=== PATIENT | female | born 1970 | race Caucasian/White ===

== ENCOUNTER → 2016-09-29 | Outpatient (CLI) | payer BC ==
[~2016-09-29] MED LIST: ACET65TA OR; LISI10TA4 OR; No Historical Meds; chlorthalidone OR
[2016-09-29 10:06] LABS: BASO # 0.1 K/mm3 (0.0-0.2); EOS # 0.1 K/mm3 (0.0-0.50); EOS % 1.9 % (0.0-3.0); LARGE UNSTAINED CELL # 0.1 K/mm3 (0.0-0.4); LARGE UNSTAINED CELL % 1.1 % (0.0-4.0); LYMPH # 1.8 K/mm3 (1.5-4.5); LYMPH % 27.1 % (24.0-44.0); MEAN CORPUSCULAR HGB CONC 34.2 g/dl (32.0-36.5); MEAN CORPUSCULAR VOLUME 87.6 fl (80.0-96.0); MONO # 0.3 K/mm3 (0.0-0.8); MONO % 4.3 % (0.0-5.0); NEUTROPHILS # 4.2 K/mm3 (1.8-7.7); NEUTROPHILS % 64.6 % (36.0-66.0); PLATELET COUNT, AUTOMATED 221 k/mm3 (150-450); RED CELL DISTRIBUTION WIDTH 12.7 % (11.5-14.5); WHITE BLOOD COUNT 6.5 K/mm3 (4.0-10.0)
[2016-09-29 10:44] LABS: ALBUMIN 3.7 GM/DL (3.2-5.2); ALBUMIN/GLOBULIN RATIO 1.28 (1.00-1.93); ALKALINE PHOSPHATASE 73 U/L (45-117); ALT/SGPT 19 U/L (12-78); ANION GAP 8 MEQ/L (8-16); AST/SGOT 11 U/L (15-37); BILIRUBIN,TOTAL 0.4 MG/DL (0.2-1.0); BLOOD UREA NITROGEN 17 MG/DL (7-18); CALCIUM LEVEL 8.6 MG/DL (8.5-10.1); CARBON DIOXIDE LEVEL 29 MEQ/L (21-32); CHLORIDE LEVEL 105 MEQ/L (98-107); CHOLESTEROL LEVEL 222 MG/DL (<200); CREATININE FOR GFR 0.81 MG/DL (0.55-1.02); FREE T4 0.99 NG/DL (0.76-1.46); GLOMERULAR FILTRATION RATE > 60.0 (>58); GLUCOSE, FASTING 90 MG/DL (70-105); POTASSIUM SERUM 3.9 MEQ/L (3.5-5.1); SODIUM LEVEL 142 MEQ/L (136-145); TOTAL PROTEIN 6.6 GM/DL (6.4-8.2); TRIGLYCERIDES LEVEL 128 MG/DL (<150)
== END ==
LOC: M LAB 09:44
PROVIDERS: ATTEND Nurse Practitioner Family
DX: I10 Essential (primary) hypertension (principal); R63.5 Abnormal weight gain; E55.9 Vitamin D deficiency, unspecified

== ENCOUNTER → 2017-01-31 | Outpatient (CLI) | payer BC ==
[2017-01-31 18:02] LABS: ANION GAP 8 MEQ/L (8-16); BLOOD UREA NITROGEN 20 MG/DL (7-18); CALCIUM LEVEL 9.3 MG/DL (8.5-10.1); CARBON DIOXIDE LEVEL 34 MEQ/L (21-32); CHLORIDE LEVEL 100 MEQ/L (98-107); CREATININE FOR GFR 0.92 MG/DL (0.55-1.02); GLOMERULAR FILTRATION RATE > 60.0 (>58); GLUCOSE, FASTING 88 MG/DL (70-105); POTASSIUM SERUM 3.1 MEQ/L (3.5-5.1); SODIUM LEVEL 142 MEQ/L (136-145)
== END ==
LOC: M LAB 16:35
PROVIDERS: ATTEND Nurse Practitioner Family
DX: J30.1 Allergic rhinitis due to pollen (principal)

== ENCOUNTER → 2017-02-13 | Outpatient (CLI) | payer BC ==
[2017-02-13 15:20] LABS: ANION GAP 7 MEQ/L (8-16); BLOOD UREA NITROGEN 19 MG/DL (7-18); CALCIUM LEVEL 9.2 MG/DL (8.5-10.1); CARBON DIOXIDE LEVEL 29 MEQ/L (21-32); CHLORIDE LEVEL 104 MEQ/L (98-107); CREATININE FOR GFR 0.94 MG/DL (0.55-1.02); GLOMERULAR FILTRATION RATE > 60.0 (>58); GLUCOSE, FASTING 86 MG/DL (70-105); MAGNESIUM LEVEL 2.1 MG/DL (1.8-2.4); POTASSIUM SERUM 3.9 MEQ/L (3.5-5.1); SODIUM LEVEL 140 MEQ/L (136-145)
== END ==
LOC: M LAB 11:23
PROVIDERS: ATTEND Nurse Practitioner Family
DX: J30.1 Allergic rhinitis due to pollen (principal)

== ENCOUNTER → 2017-08-08 | Outpatient (CLI) | payer BC | LOC: M RAD 15:01 | DX: Z12.31 Encounter for screening mammogram for malignant neoplasm of breast (principal) | CPT/HCPCS: 77067 ==

== ENCOUNTER → 2017-11-14 | Outpatient (REF) | payer BC ==
[2017-11-15 11:21] LABS: BASO # 0.1 10^3/uL (0.0-0.2); BASO % 0.7 % (0.0-1.0); EOS # 0.1 10^3/uL (0.0-0.50); EOS % 0.7 % (0.0-3.0); HEMATOCRIT 41.8 % (36.0-47.0); HEMOGLOBIN 14.4 g/dl (12.0-15.5); IMMATURE GRANULOCYTE % 0.8 % (0-3.0); LYMPH # 2.4 10^3/uL (1.5-4.5); LYMPH % 25.5 % (24.0-44.0); MEAN CORPUSCULAR HEMOGLOBIN 29.5 pg (27.0-33.0); MEAN CORPUSCULAR HGB CONC 34.4 g/dl (32.0-36.5); MEAN CORPUSCULAR VOLUME 85.7 fl (80.0-96.0); MONO # 0.5 10^3/uL (0.0-0.8); MONO % 5.2 % (0.0-5.0); NEUTROPHILS # 6.3 10^3/uL (1.8-7.7); NEUTROPHILS % 67.1 % (36.0-66.0); PLATELET COUNT, AUTOMATED 294 10^3/uL (150-450); RED BLOOD COUNT 4.88 10^6/uL (4.00-5.40); RED CELL DISTRIBUTION WIDTH 13.1 % (11.5-14.5); WHITE BLOOD COUNT 9.4 10^3/uL (4.0-10.0)
[2017-11-15 11:45] LABS: ALBUMIN 3.9 GM/DL (3.2-5.2); ALBUMIN/GLOBULIN RATIO 1.15 (1.00-1.93); ALKALINE PHOSPHATASE 79 U/L (45-117); ALT/SGPT 22 U/L (12-78); ANION GAP 7 MEQ/L (8-16); AST/SGOT 12 U/L (7-37); BILIRUBIN,TOTAL 0.5 MG/DL (0.2-1.0); BLOOD UREA NITROGEN 25 MG/DL (7-18); CALCIUM LEVEL 8.9 MG/DL (8.5-10.1); CARBON DIOXIDE LEVEL 30 MEQ/L (21-32); CHLORIDE LEVEL 105 MEQ/L (98-107); CREATININE FOR GFR 0.99 MG/DL (0.55-1.30); FREE T4 1.03 NG/DL (0.76-1.46); GLOMERULAR FILTRATION RATE > 60.0 (>58); GLUCOSE, FASTING 93 MG/DL (70-100); POTASSIUM SERUM 3.3 MEQ/L (3.5-5.1); SODIUM LEVEL 142 MEQ/L (136-145); TOTAL PROTEIN 7.3 GM/DL (6.4-8.2)
[2017-11-15 14:30] LABS: PROLACTIN 10.2 NG/ML
== END ==
LOC: M SFHCCLAY 15:48
DX: I10 Essential (primary) hypertension (principal); R63.5 Abnormal weight gain; N64.52 Nipple discharge
CPT/HCPCS: 84146

== ENCOUNTER → 2017-11-20 | Outpatient (CLI) | payer BC | LOC: M RAD 11:32 | DX: N64.52 Nipple discharge (principal) ==

== ENCOUNTER → 2017-12-13 | Outpatient (REF) | payer BC ==
[2017-12-14 11:34] LABS: BASO # 0.1 10^3/uL (0.0-0.2); BASO % 0.7 % (0.0-1.0); EOS # 0.1 10^3/uL (0.0-0.50); EOS % 1.3 % (0.0-3.0); HEMOGLOBIN 14.6 g/dl (12.0-15.5); IMMATURE GRANULOCYTE % 0.2 % (0-3.0); LYMPH # 2.5 10^3/uL (1.5-4.5); LYMPH % 29.6 % (24.0-44.0); MEAN CORPUSCULAR HEMOGLOBIN 29.4 pg (27.0-33.0); MEAN CORPUSCULAR VOLUME 86.5 fl (80.0-96.0); MONO # 0.4 10^3/uL (0.0-0.8); MONO % 5.2 % (0.0-5.0); NEUTROPHILS # 5.3 10^3/uL (1.8-7.7); PLATELET COUNT, AUTOMATED 279 10^3/uL (150-450); RED BLOOD COUNT 4.97 10^6/uL (4.00-5.40); RED CELL DISTRIBUTION WIDTH 13.2 % (11.5-14.5); WHITE BLOOD COUNT 8.4 10^3/uL (4.0-10.0)
[2017-12-14 12:06] LABS: ANION GAP 9 MEQ/L (8-16); BLOOD UREA NITROGEN 18 MG/DL (7-18); CALCIUM LEVEL 8.8 MG/DL (8.5-10.1); CARBON DIOXIDE LEVEL 29 MEQ/L (21-32); CHLORIDE LEVEL 104 MEQ/L (98-107); CREATININE FOR GFR 1.15 MG/DL (0.55-1.30); GLOMERULAR FILTRATION RATE 54.3 (>58); GLUCOSE, FASTING 111 MG/DL (70-100); POTASSIUM SERUM 3.2 MEQ/L (3.5-5.1); SODIUM LEVEL 142 MEQ/L (136-145)
== END ==
LOC: M SFHCCLAY 14:19
DX: N64.52 Nipple discharge (principal)
CPT/HCPCS: 80048

== ENCOUNTER → 2018-09-02 | Outpatient (CLI) | payer BC ==
--- NOTE | 2018-09-02 18:30 | REP ---
Clinical: Bronchitis . Comparison: 03/27/2015 . Technique: PA and lateral. Findings: The mediastinum and cardiac silhouette are normal. The lung sheets are clear and without acute consolidation, effusion, or pneumothorax. The skeletal structures are intact and normal. Impression: 1. No acute cardiopulmonary process.
== END ==
LOC: M CLY 11:11
PROVIDERS: ATTEND Nurse Practitioner Family
DX: Z87.09 Personal history of other diseases of the respiratory system (principal)

== ENCOUNTER → 2018-09-02 | Outpatient (REF) | payer BC | LOC: M SFHCCLAY 17:12 | PROVIDERS: ATTEND Nurse Practitioner Family | DX: J40 Bronchitis, not specified as acute or chronic (principal) ==

== ENCOUNTER → 2018-09-02 | Outpatient (REF) | payer BC ==
[2018-09-02 16:58] LABS: BASO # 0.1 10^3/uL (0.0-0.2); BASO % 0.5 % (0.0-1.0); EOS % 0.4 % (0.0-3.0); HEMATOCRIT 41.7 % (36.0-47.0); HEMOGLOBIN 14.2 g/dl (12.0-15.5); LYMPH # 1.5 10^3/uL (1.5-4.5); LYMPH % 13.7 % (24.0-44.0); MEAN CORPUSCULAR HEMOGLOBIN 29.6 pg (27.0-33.0); MEAN CORPUSCULAR HGB CONC 34.1 g/dl (32.0-36.5); MEAN CORPUSCULAR VOLUME 87.1 fl (80.0-96.0); MONO # 0.6 10^3/uL (0.0-0.8); MONO % 4.9 % (0.0-5.0); NEUTROPHILS # 8.9 10^3/uL (1.8-7.7); NEUTROPHILS % 80.1 % (36.0-66.0); PLATELET COUNT, AUTOMATED 255 10^3/uL (150-450); RED BLOOD COUNT 4.79 10^6/uL (4.00-5.40); WHITE BLOOD COUNT 11.1 10^3/uL (4.0-10.0)
[2018-09-02 17:08] LABS: BLOOD UREA NITROGEN 20 MG/DL (7-18); CALCIUM LEVEL 8.6 MG/DL (8.5-10.1); CARBON DIOXIDE LEVEL 29 MEQ/L (21-32); CHLORIDE LEVEL 100 MEQ/L (98-107); CREATININE FOR GFR 0.92 MG/DL (0.55-1.30); GLOMERULAR FILTRATION RATE > 60.0 (>58); GLUCOSE, FASTING 84 MG/DL (70-100); POTASSIUM SERUM 3.1 MEQ/L (3.5-5.1); SODIUM LEVEL 140 MEQ/L (136-145)
== END ==
LOC: M SFHCCLAY 10:27
PROVIDERS: ATTEND Nurse Practitioner Family
DX: J40 Bronchitis, not specified as acute or chronic (principal)

== ENCOUNTER → 2018-10-14 | Outpatient (REF) | payer BC | LOC: M SFHCCAPE 15:24 | PROVIDERS: ATTEND Physician Assistant | DX: R30.0 Dysuria (principal) ==

== ENCOUNTER → 2018-11-05 | Outpatient (REF) | payer BC ==
[2018-11-05 11:41] LABS: ALBUMIN 3.7 GM/DL (3.2-5.2); BILIRUBIN,TOTAL 0.6 MG/DL (0.2-1.0); CALCIUM LEVEL 8.9 MG/DL (8.5-10.1); CREATININE FOR GFR 1.06 MG/DL (0.55-1.30); GLOMERULAR FILTRATION RATE 59.4 (>58); POTASSIUM SERUM 3.6 MEQ/L (3.5-5.1); TOTAL PROTEIN 6.9 GM/DL (6.4-8.2)
[2018-11-05 11:42] LABS: BASO # 0.1 10^3/uL (0.0-0.2); BASO % 0.6 % (0.0-1.0); EOS # 0.1 10^3/uL (0.0-0.50); EOS % 1.3 % (0.0-3.0); HEMATOCRIT 43.2 % (36.0-47.0); HEMOGLOBIN 14.5 g/dl (12.0-15.5); LYMPH % 24.5 % (24.0-44.0); MEAN CORPUSCULAR HEMOGLOBIN 29.4 pg (27.0-33.0); MEAN CORPUSCULAR HGB CONC 33.6 g/dl (32.0-36.5); MEAN CORPUSCULAR VOLUME 87.6 fl (80.0-96.0); MONO # 0.5 10^3/uL (0.0-0.8); MONO % 6.2 % (0.0-5.0); NEUTROPHILS # 5.5 10^3/uL (1.8-7.7); PLATELET COUNT, AUTOMATED 223 10^3/uL (150-450); RED BLOOD COUNT 4.93 10^6/uL (4.00-5.40); WHITE BLOOD COUNT 8.2 10^3/uL (4.0-10.0)
== END ==
LOC: M SFHCCLAY 08:30
PROVIDERS: ATTEND Nurse Practitioner Family
DX: R10.11 Right upper quadrant pain (principal)

== ENCOUNTER → 2018-12-03 | Outpatient (CLI) | payer BC ==
[~2018-12-03] MED LIST changes: +GASTROGRAFIN SOLUTION 30ML (Q9963) As Ordered ONE; +ISOVUE-370 76% 100ML VIAL (Q9967) As Ordered ONE
--- NOTE | 2018-12-04 05:25 | REP ---
Clinical: Right upper quadrant pain. Technique: Axial contrast enhanced images of the abdomen using oral (per protocol) and 100 ml Isovue 370 intravenous contrast material with coronal and sagittal re-formations. Comparison: 11/14/2013. Findings: Lung bases are clear. Visualized heart and pericardium normal. Liver, spleen, pancreas, gallbladder, bilateral adrenal glands and kidneys are normal. Visualized small and large bowel is unremarkable and without obstruction or acute inflammatory process. Normal terminal ileum and appendix are identified in the right lower abdomen. 1 cm fat containing periumbilical hernia identified and fat containing infraumbilical ventral hernia is partially visualized. No ascites. No adenopathy. No free air. Abdominal aorta and vasculature appears normal. Musculoskeletal structures are intact. Impression: 1. Small fat containing periumbilical hernia and incompletely evaluated infraumbilical ventral hernia. 2. No acute abdominopelvic pathology appreciated. Electronically Signed by Lucas Muñoz MD 12/04/2018 05:16 A
== END ==
LOC: M RAD 08:08
PROVIDERS: ATTEND Nurse Practitioner Family
DX: K44.9 Diaphragmatic hernia without obstruction or gangrene (principal)
CPT/HCPCS: 74160; Q9963; Q9967

== ENCOUNTER → 2018-12-31 | Outpatient (CLI) | payer BC ==
[~2018-12-31] MED LIST changes: +ALBU83IN INH; +ATEN25TA PO; +CHLO125TA PO; +CHLO25TA GT; +D3 H2000 PO; +DEXI60CA2 PO; +E-Z-GAS II EFFERVESCENT PACKET (SODIUM BICARB./CITRIC ACID/SIMETHICONE) As Ordered ONE; +E-Z-HD 98% w/w 340GM SUSP BTL As Ordered ONE; +E-Z-PAQUE 96% w/w SUSP 176GM BTL As Ordered ONE; +FLUT11IN INH; -GASTROGRAFIN SOLUTION 30ML (Q9963) As Ordered ONE; -ISOVUE-370 76% 100ML VIAL (Q9967) As Ordered ONE; +MONT10TA2 PO; +MULTCAP PO; +PANT20TA2 PO; +POTA10TA17 PO; +PROAAER10 INH
--- NOTE | 2018-12-31 16:43 | REP ---
Upper GI Air Contrast with SBFT The procedure was performed by Brissa Fernandez [facility], under the the direct supervision of Dr. Muñoz. The images were reviewed with Dr. uMñoz. The roasterman film shows no organomegaly or pathological masses. The intestinal gas pattern appears normal. Liquid barium and gas producing crystals were given in the erect position as well as liquid barium in the prone position in order to perform a double contrast upper GI examination. The oral and pharyngeal stages of deglutition were unremarkable. Esophageal transport is efficient and there is no esophagitis, stricture, or mucosal ring noted. There is no hiatal hernia. Gastroesophageal reflux was visualized to the level of the thoracic inlet. The stomach oconnor are normally outlined. The rugal folds are smooth and regular. There is no gastritis, neoplasm, or ulcer disease noted. The duodenal oconnor are normally outlined. The mucosal folds are smooth and regular. There is no duodenitis, peptic ulcer disease, or neoplasm noted. The visualized portion of the proximal small bowel appears normal in course and caliber. The barium column was followed through the small bowel to the level of the terminal ileum. Small bowel transit time was approximately 40 minutes. During fluoroscopy gentle palpation shows all loops are freely mobile and pliable. There are no fixed or angulated loops. The small bowel mucosal pattern is normal in course and caliber. There is no transition to set suggest a partial small-bowel obstruction. Spot filming of the terminal ileum shows it to be unremarkable. Impression: 1. Gastroesophageal reflux to the level of the thoracic inlet. 2. Unremarkable small-bowel follow-through 1.6 minutes of fluoroscopy time was utilized for this procedure. Some fluoroscopic images are performed with last image hold technology. These images require no additional radiation. Reviewed by RADHA Palacios 12/31/2018 03:51 P Electronically Signed by Lucas Muñoz MD 12/31/2018 04:35 P
== END ==
LOC: M RAD 07:38
PROVIDERS: ATTEND Surgery
DX: R19.7 Diarrhea, unspecified (principal); R10.84 Generalized abdominal pain; K21.9 Gastro-esophageal reflux disease without esophagitis

== ENCOUNTER → 2019-01-16 | Outpatient (REF) | payer BC ==
[~2019-01-16] MED LIST changes: -ALBU83IN INH; -ATEN25TA PO; -CHLO125TA PO; -CHLO25TA GT; -D3 H2000 PO; -DEXI60CA2 PO; -E-Z-GAS II EFFERVESCENT PACKET (SODIUM BICARB./CITRIC ACID/SIMETHICONE) As Ordered ONE; -E-Z-HD 98% w/w 340GM SUSP BTL As Ordered ONE; -E-Z-PAQUE 96% w/w SUSP 176GM BTL As Ordered ONE; -FLUT11IN INH; -MONT10TA2 PO; -MULTCAP PO; -PANT20TA2 PO; -POTA10TA17 PO; -PROAAER10 INH
[2019-01-16 13:49] LABS: BASO # 0.1 10^3/uL (0.0-0.2); BASO % 1.2 % (0.0-1.0); EOS # 0.1 10^3/uL (0.0-0.50); EOS % 1.7 % (0.0-3.0); HEMATOCRIT 40.4 % (36.0-47.0); LYMPH # 2.3 10^3/uL (1.5-4.5); LYMPH % 34.6 % (24.0-44.0); MEAN CORPUSCULAR HEMOGLOBIN 30.2 pg (27.0-33.0); MEAN CORPUSCULAR HGB CONC 34.7 g/dl (32.0-36.5); MEAN CORPUSCULAR VOLUME 87.1 fl (80.0-96.0); MONO # 0.4 10^3/uL (0.0-0.8); MONO % 6.3 % (0.0-5.0); NEUTROPHILS # 3.7 10^3/uL (1.8-7.7); NEUTROPHILS % 55.9 % (36.0-66.0); PLATELET COUNT, AUTOMATED 293 10^3/uL (150-450); RED BLOOD COUNT 4.64 10^6/uL (4.00-5.40); WHITE BLOOD COUNT 6.6 10^3/uL (4.0-10.0)
[2019-01-21 00:06] LABS: D001-IgE D pteronyssinus <0.10 kU/L (Class 0); E001-IgE Cat Epith/Dander < 0.10 kU/L (Class 0); E005-IgE Dog Dander < 0.10 kU/L (Class 0); G002-IgE Bermuda Grass < 0.10 kU/L (Class 0); G008-IgE Kentucky Bluegrass < 0.10 kU/L (Class 0); M001-IgE Penicillium chrysogen < 0.10 kU/L (Class 0); M002 IgE Cladosporium herbaru < 0.10 kU/L (Class 0); M003 IgE Aspergillus fumigatu < 0.10 kU/L (Class 0); M006-IgE Alternaria alternata < 0.10 kU/L (Class 0); T001-IgE Maple/Box Elder < 0.10 kU/L (Class 0); T003-IgE Common Silver Birch < 0.10 kU/L (Class 0); T006-IgE Cedar, Mountain < 0.10 kU/L (Class 0); T007-IgE Oak, White < 0.10 kU/L (Class 0); T008-IgE Elm, American < 0.10 kU/L (Class 0); T015-IgE Ash, White < 0.10 kU/L (Class 0); T041-IgE Hickory, White < 0.10 kU/L (Class 0); T070-IgE White Mulberry < 0.10 kU/L (Class 0); W001-IgE Ragweed, Short < 0.10 kU/L (Class 0); W009-IgE Plantain, English < 0.10 kU/L (Class 0); W014-IgE Pigweed, Rough < 0.10 kU/L (Class 0); W018-IgE Sheep Sorrel < 0.10 kU/L (Class 0)
== END ==
LOC: M LAB REF 12:48
PROVIDERS: ATTEND Internal Medicine Pulmonary Disease
DX: J45.20 Mild intermittent asthma, uncomplicated (principal)

== ENCOUNTER → 2019-02-26 | Outpatient (CLI) | payer BC ==
--- NOTE | 2019-02-26 12:29 | REP ---
BILATERAL LOWER EXTREMITY DUPLEX VENOUS ULTRASOUND: Reflux exam. HISTORY: Leg swelling. Spider veins. Rule out reflux. FINDINGS: The deep veins are anechoic and fully compressible from the groin to the popliteal fossa in both lower extremities on two-dimensional scanning. Color flow and spectral Doppler interrogation are unremarkable. There is no evidence of deep vein thrombosis in either lower extremity. REFLUX EXAM: In the right lower extremity, there is a 2.9 mm collateral coming off the mid to distal greater saphenous vein. There is reflux, 3.1 seconds in duration at the midthigh in the greater saphenous vein where it measures 4.5 mm in diameter. No reflux is seen distal to this. The greater saphenous vein measures 4.9 mm in AP dimension at the proximal saphenofemoral junction and 4.1 mm in AP dimension at the knee. An anterior accessory greater saphenous vein is present measuring 5.2 mm. On the left there is minimal deep system reflux proximally. No superficial system reflux is seen. Somewhat stagnant flow was observed with standing and bilateral lower extremities. The common femoral vein demonstrates 1.3 seconds of mild reflux. An anterior accessory greater saphenous vein is present measuring and 6.5 mm without reflux. The greater saphenous vein measures 5.3 mm at the proximal saphenofemoral junction, 3.8 mm at midthigh, and 2.5 mm at the knee. There is minimal proximal femoral vein reflux, 0.9 seconds. The lesser saphenous vein measures 2.5 mm. IMPRESSION: Mild bilateral lower extremity venous reflux as above. Electronically Signed by Adam Fischer MD 02/26/2019 04:39 P
== END ==
LOC: M RAD 06:43
PROVIDERS: ATTEND Nurse Practitioner Family
DX: I87.2 Venous insufficiency (chronic) (peripheral) (principal)

== ENCOUNTER → 2019-02-27 | Outpatient (REF) | payer BC ==
[2019-02-27 11:53] LABS: BLOOD UREA NITROGEN 18 MG/DL (7-18); CALCIUM LEVEL 9.1 MG/DL (8.5-10.1); CARBON DIOXIDE LEVEL 32 MEQ/L (21-32); CHLORIDE LEVEL 99 MEQ/L (98-107); CREATININE FOR GFR 0.93 MG/DL (0.55-1.30); GLOMERULAR FILTRATION RATE > 60.0 (>58); GLUCOSE, FASTING 106 MG/DL (70-100); MAGNESIUM LEVEL 1.9 MG/DL (1.8-2.4); SODIUM LEVEL 138 MEQ/L (136-145)
== END ==
LOC: M SFHCCLAY 07:19
PROVIDERS: ATTEND Nurse Practitioner Family
DX: I10 Essential (primary) hypertension (principal)

== ENCOUNTER → 2019-03-11 | Outpatient (CLI) | payer BC ==
--- NOTE | 2019-03-11 10:51 | REP ---
RIGHT UPPER QUADRANT ULTRASOUND: Real-time sonographic evaluation of right upper quadrant performed. Gallbladder demonstrates no evidence of intraluminal sludge or calculi, wall thickening, or pericholecystic fluid. There is no intrahepatic or extrahepatic biliary dilatation, common bile duct measuring 4 mm in diameter. Liver demonstrates somewhat increased echotexture suggesting some degree of diffuse fibrofatty infiltration. In addition, there appear to be two hypoechoic nodules in the left lobe measuring 1.8 x 1.3 x 1.3 cm and 3.7 x 3.5 x 4.1 cm. Pancreas is grossly unremarkable, not optimally seen due to overlying bowel gas. Right kidney demonstrates no hydronephrosis with normal size 10.8 cm in length. IMPRESSION: There are findings suggesting diffuse fibrofatty infiltration of the liver. In addition, there are two hypoechoic nodules in the left lobe of the liver measuring 1.8 cm and 4.1 cm in maximum diameter. Recommend dedicated dynamic MRI liver with and without contrast to further evaluate. Electronically Signed by Winston Granados MD 03/12/2019 10:52 A
== END ==
LOC: M RAD 08:31
PROVIDERS: ATTEND Internal Medicine Gastroenterology
DX: K21.9 Gastro-esophageal reflux disease without esophagitis (principal)

== ENCOUNTER → 2019-03-13 | Outpatient (REF) | payer BC ==
[2019-03-13 13:34] LABS: BLOOD UREA NITROGEN 15 MG/DL (7-18); CALCIUM LEVEL 9.4 MG/DL (8.5-10.1); CARBON DIOXIDE LEVEL 29 MEQ/L (21-32); CHLORIDE LEVEL 103 MEQ/L (98-107); CREATININE FOR GFR 0.81 MG/DL (0.55-1.30); GLOMERULAR FILTRATION RATE > 60.0 (>58); GLUCOSE, FASTING 99 MG/DL (70-100); POTASSIUM SERUM 3.4 MEQ/L (3.5-5.1); SODIUM LEVEL 142 MEQ/L (136-145)
[2019-03-13 13:45] LABS: TOTAL 25(OH) VITAMIN D 25.7 NG/ML (30.0-100.0)
== END ==
LOC: M SFHCCLAY 07:17
PROVIDERS: ATTEND Nurse Practitioner Family
DX: E87.6 Hypokalemia (principal); E55.9 Vitamin D deficiency, unspecified

== ENCOUNTER → 2019-03-18 | Outpatient (CLI) | payer BC ==
[~2019-03-18] MED LIST changes: +ALBU83IN INH; +ATEN25TA PO; +CHLO125TA PO; +CHLO25TA GT; +D3 H2000 PO; +DEXI60CA2 PO; +FLUT11IN INH; +MONT10TA2 PO; +MULTCAP PO; +PANT20TA2 PO; +POTA10TA17 PO; +PROAAER10 INH
--- NOTE | 2019-03-18 09:54 | REP ---
NUCLEAR GASTRIC EMPTYING SCAN: Following the oral administration of 1.04 mCi of technetium-99m sulfur colloid in two scrambled eggs and 6 ounces of water multiple images of the upper abdomen were performed in the anterior and posterior projections for 90 minutes. The T1/2 is calculated to be 83 minutes. This is normal. IMPRESSION: Normal gastric emptying. Electronically Signed by Winston Granados MD 03/19/2019 10:04 A
== END ==
LOC: M RAD 07:32
PROVIDERS: ATTEND Internal Medicine Gastroenterology
DX: K31.84 Gastroparesis (principal)

== ENCOUNTER → 2019-03-25 | Outpatient (CLI) | payer BC ==
[~2019-03-25] MED LIST changes: -CHLO25TA GT; -D3 H2000 PO; -MULTCAP PO; -POTA10TA17 PO
--- NOTE | 2019-03-25 10:54 | REP ---
HIDA SCAN WITH GALLBLADDER EJECTION FRACTION: Following the intravenous administration of 6.6 millicuries technetium 99m mebrofenin, multiple images of the right upper quadrant are performed every 5 minute for a period of 1 hour. The gallbladder is visualized at 10 minutes post injection. There is no definite biliary to bowel transit by 1 hour, which may indicate a hypertonic sphincter of Oddi. At the 1-hour otilio, 8 ounces of Ensure Enlive is ingested and further imaging performed for 1 hour. Gallbladder activity is measured and gallbladder ejection fraction is calculated to be 74%, which is normal. IMPRESSION: Delayed biliary to bowel transit may indicate a hypertonic sphincter of Oddi. Normal gallbladder ejection fraction. Electronically Signed by Winston Granados MD 03/25/2019 03:56 P
== END ==
LOC: M RAD 07:48
PROVIDERS: ATTEND Internal Medicine Gastroenterology
DX: K82.8 Other specified diseases of gallbladder (principal)

== ENCOUNTER → 2019-04-01 | Outpatient (CLI) | payer BC ==
[~2019-04-01] MED LIST changes: +PROHANCE 279.3MG/ML 15ML VIAL (A9576) As Ordered ONE; +PROHANCE 279.3MG/ML 5ML VIAL (A9576) As Ordered ONE
--- NOTE | 2019-04-02 10:58 | REP ---
MRI ABDOMEN WITH AND WITHOUT CONTRAST: HISTORY: Liver nodule. COMPARISON: Ultrasound 03/11/2019, CT abdomen 12/03/2018 and 11/14/2013. TECHNIQUE: Multiple sequences obtained in the axial and coronal planes prior to and following the intravenous administration of 18 mL ProHance. Liver is normal in size. On precontrast images there is a subtle hyperintense nodule on T2 in the lateral segment of the left lobe inferiorly. This demonstrates arterial phase enhancement on postcontrast images and measures approximately 1.5 x 1.1 cm. There is a heterogeneously enhancing nodule in the medial segment of the left lobe centrally which is essentially isointense on precontrast T2-weighted images and is mildly hypointense on T1-weighted images. The mass is lobulated and demonstrates washout with essentially isointense appearance on more delayed postcontrast images. It measures approximately 3.8 x 4.1 cm. No other liver mass is seen. Spleen is upper limits of normal in size with a length of 13 cm. No intrinsic splenic abnormality is seen. The adrenals and pancreas are unremarkable. Left kidney appears somewhat atrophic with no mass seen in the visualized portions of the kidneys. I see no adenopathy or free fluid in the visualized abdomen. IMPRESSION: Nonspecific mass in the medial segment of the left lobe of the liver centrally with a maximum diameter of 4.1 cm. There is arterial phase enhancement which is heterogeneous with washout demonstrated on more delayed images, to an isointense appearance with adjacent normal liver parenchyma. Differential diagnosis would include adenoma, particularly if the patient is taking control pills, focal nodular hyperplasia, atypical hemangioma, or malignancy. Compared to the CT of 11/14/2013 the nodule may have been present on that prior exam, but only a subtle questionable subtle nodule is seen at that location at that time. I would recommend ultrasound guided biopsy of this mass. Otherwise if this is felt to be benign 3 month followup MRI is recommended. The other smaller nodule in the lateral segment of the left lobe inferiorly does appear to have been present on the prior exam of 2013 and is most consistent with a benign nodule such as hemangioma. No adenopathy or free fluid. Electronically Signed by Winston Granados MD 04/03/2019 08:58 A
== END ==
LOC: M RAD 14:55
PROVIDERS: ATTEND Internal Medicine Gastroenterology
DX: R93.2 Abnormal findings on diagnostic imaging of liver and biliary tract (principal); K76.89 Other specified diseases of liver
CPT/HCPCS: 74183; A9576

== ENCOUNTER → 2019-04-17 | Outpatient (REF) | payer BC ==
[~2019-04-17] MED LIST changes: +CHLO25TA GT; +D3 H2000 PO; +MULTCAP PO; +POTA10TA17 PO; -PROHANCE 279.3MG/ML 15ML VIAL (A9576) As Ordered ONE; -PROHANCE 279.3MG/ML 5ML VIAL (A9576) As Ordered ONE
[2019-04-17 12:02] LABS: BASO # 0.1 10^3/uL (0.0-0.2); BASO % 0.8 % (0.0-1.0); EOS # 0.1 10^3/uL (0.0-0.5); EOS % 1.1 % (0.0-3.0); HEMATOCRIT 43.9 % (36.0-47.0); LYMPH % 22.6 % (24.0-44.0); MEAN CORPUSCULAR HEMOGLOBIN 29.5 pg (27.0-33.0); MEAN CORPUSCULAR HGB CONC 34.2 g/dl (32.0-36.5); MEAN CORPUSCULAR VOLUME 86.4 fl (80.0-96.0); MONO # 0.4 10^3/uL (0.0-0.8); MONO % 4.9 % (0.0-5.0); NEUTROPHILS # 6.2 10^3/uL (1.5-8.5); NEUTROPHILS % 70.3 % (36.0-66.0); PLATELET COUNT, AUTOMATED 280 10^3/uL (150-450); RED BLOOD COUNT 5.08 10^6/uL (4.00-5.40); WHITE BLOOD COUNT 8.8 10^3/uL (4.0-10.0)
[2019-04-17 12:07] LABS: ALBUMIN 3.6 GM/DL (3.2-5.2); ALT/SGPT 17 U/L (12-78); BILIRUBIN,DIRECT < 0.1 MG/DL (0.0-0.2); BILIRUBIN,TOTAL 0.5 MG/DL (0.2-1.0); GAMMA GLUTAMYLTRANSPEPTIDASE 34 U/L (5-55); TOTAL PROTEIN 7.3 GM/DL (6.4-8.2)
[2019-04-17 12:12] LABS: INR 1.1; PROTHROMBIN TIME 13.9 SECONDS (11.8-14.0)
== END ==
LOC: M LABDRAWC 11:08
PROVIDERS: ATTEND Internal Medicine Gastroenterology
DX: R93.2 Abnormal findings on diagnostic imaging of liver and biliary tract (principal); D37.6 Neoplasm of uncertain behavior of liver, gallbladder and bile ducts

== ENCOUNTER 2019-04-18 12:27 | Day surgery (SDC) | payer BC ==
[~2019-04-18] VITALS: Ht 157.5 cm; Wt 93.2 kg
[~2019-04-18 12:27] MED LIST changes: +NS 1,000 ML IV ONE
[2019-04-18] MEDS ORDERED: PROPOFOL 200 MG/20 ML VIAL As Ordered ONE (12:48)
[2019-04-18] MEDS ORDERED: LIDOCAINE 2% INJ 100 MG/5 ML SDV (FOR ANES.) As Ordered ONE (12:48)
[2019-04-18] MEDS ORDERED: fentaNYL 100 MCG/2 ML INJECTION (J3010) As Ordered ONE (12:49)
[2019-04-18] MEDS ORDERED: ONDANSETRON 4MG/2ML VIAL (J2405) As Ordered ONE (13:26)
--- NOTE | 2019-04-18 13:44 | ROOR ---
Patient Name: Ellen Uribe Procedure Date: 04/18/2019 1:17 PM Date of : 1970 Age: 49 Room: [facility] Gender: Female Note Status: Finalized Procedure: Upper GI endoscopy Indications: Epigastric abdominal pain, Heartburn, Abdominal bloating, Diarrhea, Regurgitation Providers: Petros GIBSON MD Referring MD: Katharina Silverman NP Requesting Provider: Medicines: Monitored Anesthesia Care Complications: No immediate complications. Procedure: Pre-Anesthesia Assessment: - The heart rate, respiratory rate, oxygen saturations, blood pressure, adequacy of pulmonary ventilation, and response to care were monitored throughout the procedure. The Endoscope was introduced through the mouth, and advanced to the second part of duodenum. The upper GI endoscopy was accomplished without difficulty. The patient tolerated the procedure well. Findings: The Z-line was variable and was found 39 cm from the incisors. This was biopsied with a cold forceps for histology. The exam of the esophagus was otherwise normal. A few 3 to 5 mm semi-sessile fundic gland polyps were found in the gastric fundus and in the gastric body. Biopsies were taken with a cold forceps for histology. The exam of the stomach was otherwise normal. The examined duodenum was normal. Biopsies for histology were taken with a cold forceps for evaluation of celiac disease. Impression: - Z-line variable, 39 cm from the incisors. Biopsied. - The esophagus was otherwise normal. - A few fundic gland polyps. Biopsied. - The stomach is otherwise normal. - Normal examined duodenum. Biopsied. Recommendation: - Continue present medications. - Observe patient's clinical course. - Await pathology results. - Return to my office as previously scheduled. Petros Gibson MD Petros GIBSON MD 04/18/2019 1:43:44 PM Electronically signed by Petros GIBSON MD Number of Addenda: 0 Note Initiated On: 04/18/2019 1:17 PM Estimated Blood Loss: Estimated blood loss: none.
[2019-04-18 14:15] VITALS: BP 134/82
== END 2019-04-18 14:15 | disposition home or self-care (01) ==
LOC: M OPP 12:27
PROVIDERS: ATTEND Internal Medicine Gastroenterology
DX: K22.8 Other specified diseases of esophagus (principal); K31.7 Polyp of stomach and duodenum; R10.13 Epigastric pain; R14.0 Abdominal distension (gaseous); R19.7 Diarrhea, unspecified; R11.10 Vomiting, unspecified; I10 Essential (primary) hypertension; Z79.899 Other long term (current) drug therapy; Z91.030 Bee allergy status
CPT/HCPCS: 43239; 88305; J2405; J3010

== ENCOUNTER → 2019-04-22 | Outpatient (CLI) | payer BC ==
[~2019-04-22] MED LIST changes: +ACETAMINOPHEN 325 MG TAB As Ordered ONE; +LIDOCAINE 1% MDV 20ML VIAL As Ordered ONE; -NS 1,000 ML IV ONE
[2019-04-22 12:25] VITALS: BP 150/91
--- NOTE | 2019-04-22 17:12 | REP ---
Ultrasound-guided liver biopsy This procedure was performed by Brissa Fernandez [facility], under the direct supervision of Dr. Granados. The risks and benefits of the procedure were explained to the patient and informed consent was obtained both verbally and written. Directly prior to the start of the procedure, a formal timeout was done in the procedure room. The mass in the left lobe of the liver was localized using ultrasound guidance. The skin was prepped and draped in a sterile fashion. 13 ml of 1% lidocaine was used as a local anesthetic. Using ultrasound guidance a small skin dc was made and a 19/20 gauge coaxial needle biopsy system was inserted and advanced into the liver. 4 core biopsy samples were obtained and sent to the lab. The patient tolerated the procedure well and there were no immediate complications. After the appropriate monitored convalescence the patient was discharged home from the department. Reviewed by RADHA Palacios 04/22/2019 03:28 P Electronically Signed by Winston Granados MD 04/22/2019 05:03 P
== END ==
LOC: M IRPRO 09:17
PROVIDERS: ATTEND Internal Medicine Gastroenterology
DX: D13.4 Benign neoplasm of liver (principal); K76.0 Fatty (change of) liver, not elsewhere classified; Z79.899 Other long term (current) drug therapy; Z91.030 Bee allergy status

== ENCOUNTER → 2019-05-20 | Outpatient (CLI) | payer BC ==
[~2019-05-20] MED LIST changes: -ACETAMINOPHEN 325 MG TAB As Ordered ONE; -LIDOCAINE 1% MDV 20ML VIAL As Ordered ONE; +METHACHOLINE KIT (J7674) INH ONE
--- NOTE | 2019-05-20 13:56 | PFTRPT ---
Site: [facility], [address] [place], [address] ID: [id number] Name: DARIUS BAIN Visit Date: 05/20/2019 Second ID: [id number] Referring Doctor: Dio Christiansen D.O. Reviewing Doctor: Stephen Diane MD Propeller Layout Worker: Destiny BORREGO RRT Age: 49 : 1970 Sex: Female Race: Height: 62.00 Inches Weight: 200.00 Lbs BSA: 1.91 Order IDs: [id number] Requested Test(s): <RESP-PFT.METH CHAL> Diagnosis: R05 of albuterol for postbronchodilator. Review Status: Not Reviewed Pre-Bronch Post-Bronch Pred Actual %Pred Actual %Chng SPIROMETRY FVC (L) 3.35 3.02 90 2.98 -1 FEV1 (L) 2.68 2.47 92 2.41 -2 FEV1/FVC (%) 81 82 101 81 -1 FEF 25% (L/sec) 5.08 3.93 77 4.14 5 FEF 50% (L/sec) 4.00 2.47 61 2.20 -10 FEF 75% (L/sec) 1.50 1.38 92 1.17 -15 FEF 25-75% (L/sec) 2.75 2.36 85 2.15 -8 FEF Max (L/sec) 6.52 5.14 78 4.68 -8 FIVC (L) 3.17 2.87 -9 FIF 50% (L/sec) 3.88 4.02 103 3.08 -23 FIF Max (L/sec) 4.28 3.20 -25 Expiratory Time (sec) 6.45 6.61 2 Back Extrap Vol (L) 0.05 0.08 45 Time To FEFmax (sec) 0.068 0.092 34
--- NOTE | 2019-05-26 11:54 | SLEEPHOME ---
DATE OF PROCEDURE: 05/22/2019 ORDERED BY: Dr. Christiansen Diagnostic home sleep testing was performed due to concern for the obstructive sleep apnea syndrome. For testing, a nocturnal T3 respiratory monitoring device was used. Continuous record was made of pulse, oxygen saturation, airflow, chest and abdominal strain, and body position. 9 hours and 24 minutes of data were reviewed. There 7 hours and 58 minutes marked as time in bed. During the interval marked time in bed, there were 43 respiratory events identified of 10 seconds in duration or greater for a respiratory event index of 5.4. The events were primarily obstructive, 18 mixed and central apneas were also seen. Pulse rate and saturation data were unable to be reported as the probe dislodged early in the study. Testing was performed in both supine and nonsupine positions. IMPRESSION: Abnormal home sleep testing with repetitive respiratory events and a respiratory event index of 5.4 is consistent with the obstructive sleep apnea syndrome. RECOMMENDATIONS: The patient should be encouraged to undergo formal sleep evaluation.
== END ==
LOC: M SLEEP HO 12:43
PROVIDERS: ATTEND Internal Medicine Pulmonary Disease
DX: R05 Cough (principal); R06.83 Snoring; G47.9 Sleep disorder, unspecified
CPT/HCPCS: 94070; G0399; J7674

== ENCOUNTER → 2019-06-17 | Outpatient (CLI) | payer BC ==
[~2019-06-17] MED LIST changes: -METHACHOLINE KIT (J7674) INH ONE
--- NOTE | 2019-06-25 12:10 | SLEEPCENT ---
DATE OF PROCEDURE: 06/17/2019 Nocturnal polysomnography was performed for evaluation of sleep physiology. 7 hours and 22 minutes of data were reviewed. There were 410.5 minutes of sleep identified. Sleep latency was prolonged at 19.5 minutes. REM latency was prolonged at 193 minutes. Sleep architecture showed poor progression. There were three REM cycles noted. Overall sleep efficiency was 93.8%, but there was a reduction in REM time. The patient's electrocardiogram showed a sinus rhythm with an average heart rate of 70 beats per minute. Rate ranged 60 to 100 beats per minute. EEG showed some coarsening but no focal events were identified. There were normal waveforms for awake and sleep. There were 295 respiratory events identified of 10 seconds in duration or greater for an apnea-hypopnea index of 43.1. There were 18 central and mixed apneas. The events were not exclusive to sleep stage nor body posture. Arousals from respiratory events were seen to occur 5.4 times per hour and oxygen desaturations were seen into the low 80s. There was also significant activity in the limb leads, however arousals events from limbs were few. IMPRESSION: Obstructive sleep apnea syndrome (G47.33). Apnea-hypopnea index 43.1. RECOMMENDATIONS The patient should be encouraged to return to the sleep disorder center for pressure therapy. In the interim, alcohol and sedative avoidance should be practiced and caution exercised during the operation of motor vehicles.
== END ==
LOC: M SLEEP 19:50
PROVIDERS: ATTEND Internal Medicine Pulmonary Disease
DX: G47.33 Obstructive sleep apnea (adult) (pediatric) (principal)

== ENCOUNTER → 2019-09-25 | Outpatient (CLI) | payer BC ==
[~2019-09-25] MED LIST changes: -MONT10TA2 PO; +MONT10TA4 PO
--- NOTE | 2019-09-25 11:34 | REP ---
CHEST, TWO VIEWS: COMPARISON: 10/17/2018. There is no evidence of acute infiltrate. No pleural effusion is seen. The heart is normal in size. The mediastinal silhouette is unremarkable. The visualized osseous structures are intact. There are mild degenerative changes of the spine. IMPRESSION: No acute pulmonary disease. Electronically Signed by Winston Granados MD 09/25/2019 04:52 P
== END ==
LOC: M CLY 09:19
PROVIDERS: ATTEND Nurse Practitioner Family
DX: K76.9 Liver disease, unspecified (principal)

== ENCOUNTER → 2019-10-03 | Outpatient (REF) | payer BC | LOC: M LABDRAWC 11:35 | PROVIDERS: ATTEND Internal Medicine Gastroenterology | DX: K31.89 Other diseases of stomach and duodenum (principal); R19.7 Diarrhea, unspecified; K25.9 Gastric ulcer, unspecified as acute or chronic, without hemorrhage or perforation ==

== ENCOUNTER → 2019-10-13 | Outpatient (CLI) | payer BC ==
[~2019-10-13] MED LIST changes: +PROHANCE 279.3MG/ML 15ML VIAL (A9576) As Ordered ONE; +PROHANCE 279.3MG/ML 5ML VIAL (A9576) As Ordered ONE
--- NOTE | 2019-10-13 11:51 | REP ---
MRI ABDOMEN WITH AND WITHOUT CONTRAST: COMPARISON: 04/01/2019. Multiple sequences obtained in the axial and coronal planes prior to and following the intravenous administration of 18 mL ProHance. Once again in the left lobe of the liver there is a subtle nodule seen on both T2 and arterial phase post contrast images, unchanged. The previously noted heterogeneously enhancing nodule in the medial segment of the left lobe centrally is best seen on the arterial phase post contrast images. The size at its epicenter is approximately 3.4 x 5.0 cm. At this level on the prior study measurements are 3.3 x 4.8 cm. It is essentially unchanged. There is only minimal retention of contrast on the more delayed post contrast imaged. Spleen is minimally enlarged measuring 13.8 cm in length. No intrinsic splenic abnormality is seen. The adrenals, pancreas, and visualized kidneys appear unremarkable. I see no adenopathy or free fluid in the abdomen. IMPRESSION: Essentially stable liver mass in the left lobe compared to prior study of 04/01/2019. The other subtle nodule more laterally in the left lobe is also stable. Continued followup recommended. Electronically Signed by Winston Granados MD 10/13/2019 12:57 P
== END ==
LOC: M RAD 09:35
PROVIDERS: ATTEND Internal Medicine Gastroenterology
DX: R93.2 Abnormal findings on diagnostic imaging of liver and biliary tract (principal)
CPT/HCPCS: 74183; A9576

== ENCOUNTER → 2020-01-24 | Outpatient (CLI) | payer BC ==
[~2020-01-24] MED LIST changes: +CEFD1CAP8 PO; -CHLO25TA GT; +CHLO25TA PO; +LEVOTAB10 PO; +OXYC1TAB23 PO; -PANT20TA2 PO; +PANT20TA6 PO; +POTA1TAB14 PO; -PROHANCE 279.3MG/ML 15ML VIAL (A9576) As Ordered ONE; -PROHANCE 279.3MG/ML 5ML VIAL (A9576) As Ordered ONE; +SING10TA32 PO
== END ==
LOC: M LABSMTC 09:00
PROVIDERS: ATTEND Specialist
DX: Z11.59 Encounter for screening for other viral diseases (principal)
CPT/HCPCS: C9803; U0002

== ENCOUNTER 2020-03-02 12:34 | Day surgery (SDC) | payer BC, OTHER ==
[~2020-03-02] VITALS: Ht 157.5 cm; Wt 91.1 kg
[~2020-03-02 12:34] MED LIST changes: -CEFD1CAP8 PO; -LEVOTAB10 PO; -OXYC1TAB23 PO; -POTA1TAB14 PO; -SING10TA32 PO
[2020-03-02] MEDS ORDERED: MORPHINE 4 MG/ML 1ML VIAL/SYRINGE (J2270) IV ONE (14:00)
[2020-03-02] MEDS ORDERED: ONDANSETRON 4MG/2ML VIAL IV ONE (14:00)
[2020-03-02 14:08] LABS: BASO # 0.1 10^3/uL (0.0-0.2); BASO % 0.4 % (0.0-1.0); EOS % 0.4 % (0.0-3.0); HEMOGLOBIN 15.1 g/dl (12.0-15.5); LYMPH # 1.6 10^3/uL (1.5-5.0); LYMPH % 14.2 % (24.0-44.0); MEAN CORPUSCULAR HEMOGLOBIN 28.9 pg (27.0-33.0); MEAN CORPUSCULAR HGB CONC 34.3 g/dl (32.0-36.5); MEAN CORPUSCULAR VOLUME 84.3 fl (80.0-96.0); MONO # 0.5 10^3/uL (0.0-0.8); MONO % 4.7 % (0.0-5.0); NEUTROPHILS # 9.1 10^3/uL (1.5-8.5); NEUTROPHILS % 79.9 % (36.0-66.0); PLATELET COUNT, AUTOMATED 252 10^3/uL (150-450); RED BLOOD COUNT 5.22 10^6/uL (4.00-5.40); WHITE BLOOD COUNT 11.3 10^3/uL (4.0-10.0)
[2020-03-02 14:41] LABS: ALBUMIN 4.1 GM/DL (3.2-5.2); BILIRUBIN,DIRECT 0.1 MG/DL (0.0-0.2); BILIRUBIN,TOTAL 0.5 MG/DL (0.2-1.0); TOTAL PROTEIN 7.3 GM/DL (6.4-8.2)
[2020-03-02] MEDS ORDERED: ISOVUE-370 76% 100ML VIAL As Ordered ONE (16:06)
--- NOTE | 2020-03-02 16:36 | REPVR ---
PROCEDURE INFORMATION: Exam: CT Abdomen And Pelvis With Contrast Exam date and time: 03/02/2020 4:10 PM Age: 50 years old Clinical indication: Abdominal pain; Additional info: Rlq pain R/O appy TECHNIQUE: Imaging protocol: Computed tomography of the abdomen and pelvis with intravenous contrast. Axial, coronal and sagittal reformatted images were created and reviewed. Radiation optimization: All CT scans at this facility use at least one of these dose optimization techniques: automated exposure control; mA and/or kV adjustment per patient size (includes targeted exams where dose is matched to clinical indication); or iterative reconstruction. Contrast material: ISOVUE 370; Contrast volume: 100 ml; Contrast route: INTRAVENOUS (IV); COMPARISON: 1. CT ABD PELVIS WITH CONTRAST 11/14/2013 7:47 PM 2. MRI ABD W/O FOL WITH 10/13/2019 9:54:57 AM FINDINGS: Liver: Mild hepatomegaly. Diffuse hepatic steatosis. Subtle, 4.4 x 3.2 cm low-density mass in the left hepatic lobe, similar to prior. Gallbladder and bile ducts: No radiodense gallstones. No biliary ductal dilatation. Pancreas: Unremarkable. Spleen: Unremarkable. Adrenals: Unremarkable. Kidneys and ureters: No mass. No radiodense calculi. No hydronephrosis. Stomach and bowel: No bowel wall thickening. No obstruction. No pneumatosis. Appendix: Dilated, thickwalled, hyperemic retrocecal appendix with mild periappendiceal inflammatory change. Intraperitoneal space: No free fluid. No organized fluid collection. No free air. Vasculature: Unremarkable. No aneurysm. Lymph nodes: No pathologically enlarged lymph nodes. Bladder: Unremarkable. Reproductive: Unremarkable. Bones/joints: No acute osseous abnormality. Mild degenerative changes. Soft tissues: Small, fat containing umbilical hernia. IMPRESSION: 1. Acute retrocecal appendicitis. No abscess, obstruction or free air. 2. Additional findings, as above. Electronically signed by: Percy Huntley On 03/02/2020 16:36:12 PM
[2020-03-02] MEDS ORDERED: MORPHINE 2 MG/ML 1ML VIAL (J2270) IV ONE (17:00)
[2020-03-02] MEDS ORDERED: PIPERACILLIN/TAZOBACTAM SOD 3.375 GM in D5W MINI-BAG PLUS 50 ML IV ONE (17:00)
[2020-03-02] MEDS ORDERED: SING10TA32 PO (18:02)
[2020-03-02] MEDS ORDERED: LEVOTAB10 PO (18:02)
[2020-03-02] MEDS ORDERED: POTA1TAB14 PO (18:02)
[2020-03-02] MEDS ORDERED: MIDAZOLAM INJ 2MG/2ML VIAL (J2250 PER 1MG) As Ordered ONE (18:56)
[2020-03-02] MEDS ORDERED: ROCURONIUM BROMIDE 50 MG/5 ML VIAL As Ordered ONE (18:56)
[2020-03-02] MEDS ORDERED: dexameTHASONE 4 MG/ML 1ML VIAL (J1100 PER 1MG) As Ordered ONE (18:56)
[2020-03-02] MEDS ORDERED: LIDOCAINE 2% 100MG/5ML SDV (FOR ANES.) As Ordered ONE (18:56)
[2020-03-02] MEDS ORDERED: propofoL 200 MG/20 ML VIAL As Ordered ONE ×2 (18:56→18:57)
[2020-03-02] MEDS ORDERED: fentaNYL 250 MCG/5 ML INJECTION (J3010) As Ordered ONE (18:56)
[2020-03-02] MEDS ORDERED: ONDANSETRON 4MG/2ML VIAL As Ordered ONE (18:56)
[2020-03-02] MEDS ORDERED: SUGAMMADEX SODIUM 500 MG/5 ML VIAL (BRIDION) As Ordered ONE (18:56)
[2020-03-02] MEDS ORDERED: ONDANSETRON 4MG/2ML VIAL IV PRN ×2 (19:15→21:30)
[2020-03-02] MEDS ORDERED: BUPIVACAINE HCL 0.25% 30ML VIAL As Ordered ONE (19:29)
[2020-03-02] MEDS ORDERED: LIDOCAINE 1% SDV 30ML VIAL As Ordered ONE (19:29)
[2020-03-02] MEDS ORDERED: SUCCINYLCHOLINE 100 MG/5 ML SYRINGE (J0330) As Ordered ONE (20:03)
[2020-03-02] MEDS ORDERED: ACETAMINOPHEN 1000MG 100ML IV BTL (OFIRMEV) (J0131 PER 10MG) As Ordered ONE (20:19)
--- NOTE | 2020-03-02 21:06 | POST-OPPD ---
Postoperative Procedure Note Date Of Procedure: Mar 02, 2020 PREOPERATIVE DIAGNOSIS: Acute Appendicitis POSTOPERATIVE DIAGNOSIS: Acute Appendicitis FINDINGS: retrocecal appendix, inflamed appendix and mesoappendix, no gross perforation, mildly ischemic wall, murky fluid at the right gutter PROCEDURE: Laparoscopic Appendectomy SURGEON: Milad Licona MD ANESTHESIA: General Anesthesia SPECIMENS: appendix ESTIMATED BLOOD LOSS: 10 ml COMPLICATIONS: none, extubated, [place]. [id number] MILAD LICONA MD Mar 02, 2020 21:06
[2020-03-02] MEDS ORDERED: fentaNYL 100 MCG/2 ML INJECTION (J3010) IV PRN (21:30)
[2020-03-02] MEDS ORDERED: LR 1,000 ML IV SCH (21:30)
[2020-03-02 22:30] VITALS: BP 112/73
[2020-03-02 23:00] VITALS: BP 107/70
[2020-03-02] MEDS: PIPERACILLIN/TAZOBACTAM SOD 3.375 GM in D5W MINI-BAG PLUS 50 ML IV SCH (23:24)
[2020-03-02 23:30] VITALS: BP 104/69
[2020-03-03 00:30] VITALS: BP 108/71
[2020-03-03 01:30] VITALS: BP 99/60
[2020-03-03 02:30] VITALS: BP 121/83
[2020-03-03] MEDS: MORPHINE 10MG/0.5ML ORAL CONCENTRATE SOLUTION U/D PO PRN ×2 (02:34→11:20)
[2020-03-03 04:00] VITALS: BP 118/68
[2020-03-03] MEDS: PIPERACILLIN/TAZOBACTAM SOD 3.375 GM in D5W MINI-BAG PLUS 50 ML IV SCH ×2 (05:35→10:23)
[2020-03-03 06:49] LABS: BASO % 0.2 % (0.0-1.0); HEMATOCRIT 40.9 % (36.0-47.0); HEMOGLOBIN 13.9 g/dl (12.0-15.5); LYMPH # 1.1 10^3/uL (1.5-5.0); MEAN CORPUSCULAR HEMOGLOBIN 28.9 pg (27.0-33.0); MONO # 0.3 10^3/uL (0.0-0.8); MONO % 2.4 % (0.0-5.0); NEUTROPHILS # 10.7 10^3/uL (1.5-8.5); PLATELET COUNT, AUTOMATED 240 10^3/uL (150-450); RED BLOOD COUNT 4.81 10^6/uL (4.00-5.40); WHITE BLOOD COUNT 12.1 10^3/uL (4.0-10.0)
[2020-03-03 07:12] LABS: BLOOD UREA NITROGEN 10 MG/DL (7-18); CALCIUM LEVEL 8.9 MG/DL (8.5-10.1); CARBON DIOXIDE LEVEL 28 MEQ/L (21-32); CHLORIDE LEVEL 106 MEQ/L (98-107); CREATININE FOR GFR 0.81 MG/DL (0.55-1.30); GLOMERULAR FILTRATION RATE > 60.0 (>58); GLUCOSE, FASTING 140 MG/DL (70-100); POTASSIUM SERUM 3.3 MEQ/L (3.5-5.1); SODIUM LEVEL 141 MEQ/L (136-145)
[2020-03-03 10:00] VITALS: BP 113/71
[2020-03-03] MEDS ORDERED: CEFD1CAP8 PO (10:13)
--- NOTE | 2020-03-03 10:15 | IPNPDOC ---
Text Note Date of Service The patient was seen on 03/03/20. NOTE Patient feeling much better afebrile comfortable abdomen, soft nondistended, 3 port sites with dressings clean, dry, intact, nontender RLQ area labs reviewed wbc still elevated Impression and plan Acute Appendicitis s/p lap appendectomy ok to go home will d/c on antibiotics x 7 days follow up in clinic inn 2 weeks VS,Marek, I+O VS, Marek, I+O Laboratory Tests 03/02/20 13:55 03/03/20 06:19 Vital Signs Date Time Temp Pulse Resp B/P (MAP) Pulse Ox O2 Delivery O2 Flow Rate FiO2 03/03/20 04:00 97.5 69 14 118/68 (85) 94 Room Air 03/02/20 20:57 10 I&O- Last 24 Hours up to 6 AM 03/03/20 06:00 Intake Total 1310 ml Output Total 610 ml Balance 700 ml THERESA ARAYA MD Mar 03, 2020 10:15
[2020-03-03] MEDS ORDERED: OXYC1TAB23 PO (12:19)
--- NOTE | 2020-03-25 12:47 | RO ---
DATE OF OPERATION: 03/02/2020 PREOPERATIVE DIAGNOSIS: Acute appendicitis POSTOPERATIVE DIAGNOSIS: Acute appendicitis PROCEDURE: Laparoscopic appendectomy SURGEON: Milad Licona MD ANESTHESIA: General anesthesia ESTIMATED BLOOD LOSS: 10 ml SPECIMEN: Appendix. FINDINGS INCLUDE: Inflamed retrocecal appendix with shortened thickened mesoappendix, small amount of murky fluid in the gutter, adhesions of the uterus to the lower abdominal wall. PROCEDURE NOTE: Ms. Bonilla is a 50-year-old female with a one day history of abdominal pain, found to have evidence for acute appendicitis on CT with mild leukocytosis. She was given Zosyn 3.375 gm IV preoperatively while she was in the emergency room and was brought to the operating room for appendectomy. The patient was brought to the operating room placed supine on the table; compression was placed in her lower extremities for deep venous thrombosis (DVT) prophylaxis. General endotracheal anesthesia started. Her abdomen prepped and draped in the usual sterile fashion. Surgical time-out was performed prior to start of the incision. Entry into the abdomen done through an incision roughly about 4 to 5 cm above the umbilicus. A Veress needle was inserted in controlled fashion. Proper placement confirmed with saline drop technique. Co2 insufflation started to a pressure of 15 mmHg. Using the same incision, initially a 5 mm port was placed under direct vision with laparoscope. The incision site was inspected for injury, none was found. She was then placed in the Trendelenburg position. The right side tilted up to further expose the right gutter. From the images on the CT, I was expecting a retrocecal appendix. She has some adhesions from a prior surgery, mainly at the uterus to the lower abdominal wall. The gallbladder appears normal. Liver appears smooth. There is a small amount of murky fluid mainly along the right gutter. The appendix was initially immediately visible. Under direct vision, a 5 mm port was placed at the suprapubic area. The supraumbilical port was exchanged for an 8 mm port and another 5 mm port placed at the left lower quadrant area. The course of the terminal ileum and the cecum was examined. The lateral attachments of the terminal ileum as it enters the cecum were freed up. Inflamed tissue noted around the right lateral cecal sidewall consistent where the appendix is. The cecum was further freed up laterally. The course of the appendix was noted. It looks inflamed; though no gross perforation that I could see. There are fibrinous exudates along the course of the appendix, quite small, but looks inflamed. The attachments of the appendix to the lateral cecal sidewall were divided with Harmonic scalpel eventually lifting the appendix away from the cecum and dividing the mesoappendix down to the base. Once this was adequately dissected free, two PDS EndoLoops were used to ligate the base of the appendix and the appendix was divided with a Harmonic scalpel. The stump appears otherwise healthy. This was delivered into an Endo Catch bag and retrieved through the 8 mm port site without enlarging the port. Under insufflation, irrigation was performed to suction out and irrigate the murky fluid around the right gutter, also at the right perihepatic area. Survey of the abdomen was done and was satisfied. The abdomen was deflated, all ports were removed. The supraumbilical fascial defect, which was 8 mm, was closed with Rodrigo-Greer using 0-Vicryl. The rest of the skin incisions closed with 4-0 Monocryl in subcuticular fashion. Steri-Strips and gauze dressing then placed. The patient tolerated the procedure well. She was promptly awaken, extubated and brought to the recovery room in stable condition. ALIZA
== END 2020-03-03 12:25 | disposition home or self-care (01) ==
LOC: M ED 12:34 → M SDC 19:11 → M MS5PR 22:42 → M SDC 03-03 12:25
PROVIDERS: ATTEND Surgery
DX: K35.890 Other acute appendicitis without perforation or gangrene (principal); I10 Essential (primary) hypertension; J45.909 Unspecified asthma, uncomplicated; K21.9 Gastro-esophageal reflux disease without esophagitis; F41.9 Anxiety disorder, unspecified; K76.9 Liver disease, unspecified; Z79.51 Long term (current) use of inhaled steroids; Z79.899 Other long term (current) drug therapy
CPT/HCPCS: 36415; 44970; 74177; 80047; 80048; 80076; 81001; 83690; 85025; 88304; 96365; 96366; 96375; 96376; 99284; J0131; J0330; J1100; J2250; J2270; J2405; J2543; J3010; Q9967; U0002

== ENCOUNTER → 2020-03-25 | Outpatient (REF) | payer BC ==
[~2020-03-25] MED LIST changes: +CEFD1CAP8 PO; +LEVOTAB10 PO; +OXYC1TAB23 PO; +POTA1TAB14 PO; +SING10TA32 PO
[2020-03-25 12:34] LABS: BLOOD UREA NITROGEN 17 MG/DL (7-18); CALCIUM LEVEL 9.1 MG/DL (8.5-10.1); CARBON DIOXIDE LEVEL 30 MEQ/L (21-32); CHLORIDE LEVEL 106 MEQ/L (98-107); CREATININE FOR GFR 0.82 MG/DL (0.55-1.30); GLOMERULAR FILTRATION RATE > 60.0 (>58); GLUCOSE, FASTING 100 MG/DL (70-100); POTASSIUM SERUM 3.7 MEQ/L (3.5-5.1); SODIUM LEVEL 142 MEQ/L (136-145)
== END ==
LOC: M SFHCCLAY 11:33
PROVIDERS: ATTEND Nurse Practitioner Family
DX: E87.6 Hypokalemia (principal)

== ENCOUNTER → 2020-05-09 | Outpatient (CLI) | payer BC ==
--- NOTE | 2020-05-12 07:17 | SLEEPCENT ---
DATE: 05/09/2020 ORDERED BY: Dio Christiansen MD Nocturnal polysomnography was performed for the titration of pressure therapy in this patient with obstructive sleep apnea syndrome, apnea-hypopnea index 43.1. For testing, a ResMed Airfit F20 full face mask of small size was used, 4 cm of water pressure were applied to the circuit and the lights were extinguished. Seven hours and 31 minutes of data were reviewed. There were 428.5 minutes of sleep identified. Sleep latency was short at 4.5 minutes. REM latency was normal at 98 minutes. Sleep architecture was good with three REM cycles. Overall sleep efficiency was 96.9%. The electrocardiogram showed a sinus rhythm with an average heart rate of 58 beats per minute. EEG showed normal waveforms for wake and sleep. Respiratory events were fully palliated with CPAP at a pressure of +6 and remaining measures of sleep physiology were normal. IMPRESSION: Obstructive sleep apnea syndrome (G47.33). RECOMMENDATION: Nightly use of pressure therapy 6 cm of water. MTDD
== END ==
LOC: M SLEEP 20:00
PROVIDERS: ATTEND Physician Assistant
DX: G47.33 Obstructive sleep apnea (adult) (pediatric) (principal)

== ENCOUNTER → 2020-05-21 | Outpatient (CLI) | payer BC ==
[~2020-05-21] MED LIST changes: +PROHANCE 279.3MG/ML 5ML VIAL As Ordered ONE
--- NOTE | 2020-05-21 20:52 | REP ---
INDICATION: ABNORMAL IMAGING-NEOPLASM OF LIVER, GB BILE DUCT. COMPARISON: 10/13/2019, 04/01/2019 TECHNIQUE: Pre and postcontrast MRI of the abdomen. 16 cc ProHance gadolinium based contrast material administered without complication. FINDINGS: The heterogeneously enhancing 3.7 cm mass lesion in the medial central left hepatic lobe is again identified and unchanged in size, appearance and enhancement characteristics. No further significant hepatic lesions are identified on current examination. Hepatic vasculature including hepatic and portal veins appear normal. The gallbladder is unremarkable and no biliary ductal dilatation is appreciated. Pancreas, spleen, bilateral adrenal glands and visualized kidneys are normal. No ascites or inflammatory stranding in the visualized abdomen. Visualized portions of the enteric system appear normal by MRI examination. No obvious adenopathy. IMPRESSION: Heterogeneously enhancing 3.7 cm mass in the medial left hepatic lobe unchanged through 04/01/2019. Differential diagnosis includes but is not limited to adenoma, focal nodular hyperplasia and less likely malignant neoplasm. No new abdominal abnormality appreciated. <Electronically signed by Lucas Muñoz > 05/21/202
== END ==
LOC: M RAD 17:54
PROVIDERS: ATTEND Internal Medicine Gastroenterology
DX: R93.2 Abnormal findings on diagnostic imaging of liver and biliary tract (principal); D37.6 Neoplasm of uncertain behavior of liver, gallbladder and bile ducts
CPT/HCPCS: 74183; A9576

== ENCOUNTER → 2020-07-15 | Outpatient (REF) | payer SELFPAY ==
[~2020-07-15] MED LIST changes: +MONT10TA10 PO; -MONT10TA4 PO; -PROHANCE 279.3MG/ML 5ML VIAL As Ordered ONE
== END ==
LOC: EDSTATUS 12:50 → M LABSMTC 12:55
PROVIDERS: ATTEND Pediatrics
DX: Z20.822 Contact with and (suspected) exposure to COVID-19 (principal)

== ENCOUNTER → 2020-08-23 | Outpatient (CLI) | payer BC ==
--- NOTE | 2020-08-23 10:57 | REPMRS ---
Patient History The patient states she had a clinical breast exam in 08/2019 Patient is postmenopausal. Family history of unknown cancer at age 50 or over in maternal grandfather, unknown cancer under age 50 in maternal aunt. Benign excisional biopsy of the left breast, 2018. Digital Woman Screen Mammo: August 23, 2020 - Exam #: [id number] Bilateral CC and MLO view(s) were taken. Technologist: Mulu Vega, Technologist Prior study comparison: November 20, 2017, left breast digital mammo diagnostic unilateral, performed at [facility]. August 08, 2017, bilateral digital mammo screening bilat, performed at [facility]. June 04, 2012, digital woman screen mammo performed at [facility] [place]. FINDINGS: The breast tissue is almost entirely fat. The Volpara volumetric breast density category is: A. There is a 5 mm bubba density in the inferolateral quadrant of the left breast. This merits further evaluation. There has been no other change in the appearance of the mammogram from the prior studies. There is no other interval development of dominant mass, architectural distortion, or grouped microcalcification typical of malignancy. 3-D tomosynthesis shows no additional findings. Assessment: BI-RADS/ACR category 0 mammogram, Incomplete: Need additional imaging evaluation and/or prior mammograms for comparison. Recommendation Ultrasound and special view mammogram of the left breast. This patient's [facility] Lifetime Breast Cancer RIsk is estimated at 9.8 %. This mammogram was interpreted with the aid of an FDA-approved computer-aided dectection system. Electronically Signed By: Ehsan Fischer MD 08/23/20 [id number]
== END ==
LOC: M WHC 08:48
PROVIDERS: ATTEND Nurse Practitioner Family
DX: Z12.31 Encounter for screening mammogram for malignant neoplasm of breast (principal)

== ENCOUNTER → 2020-09-03 | Outpatient (CLI) | payer BC ==
--- NOTE | 2020-09-03 09:59 | REP ---
INDICATION: ADDITIONAL VIEW LT BREAST. COMPARISON: 08/23/2020 as well as other prior exams. TECHNIQUE: Spot compression views left breast performed, as well as focused left breast ultrasound. FINDINGS: Persistent smoothly marginated nodule is seen inferolaterally in the left breast. It measures 4-5 mm in diameter. Focused left breast ultrasound performed inferolaterally. There is a hypoechoic nodule 4 mm in diameter which may represent a complex cyst or solid nodule. IMPRESSION: BIRADS/ACR category 4A, suspicious. Suspicion for malignancy is low. The new smoothly marginated nodule is confirmed inferolaterally in the left breast. By ultrasound this represents a complex cyst or solid nodule. Recommend ultrasound-guided sampling with postprocedure mammogram. This mammogram was interpreted with the aid of an FDA-approved computer-aided detection system. The patient letter being requested is M4. RECOMMENDATION: Recommend ultrasound-guided biopsy left breast nodule with postprocedure mammogram. <Electronically signed by Winston Granados > 09/03/20 [id number]
== END ==
LOC: M WHC 08:07
PROVIDERS: ATTEND Nurse Practitioner Family
DX: R92.8 Other abnormal and inconclusive findings on diagnostic imaging of breast (principal)

== ENCOUNTER → 2020-09-30 | Outpatient (REF) | payer BC ==
[2020-09-30 11:44] LABS: BASO # 0.1 10^3/uL (0.0-0.2); BASO % 0.8 % (0.0-1.0); EOS # 0.1 10^3/uL (0.0-0.5); EOS % 1.3 % (0.0-3.0); HEMATOCRIT 42.2 % (36.0-47.0); HEMOGLOBIN 14.3 g/dl (12.0-15.5); LYMPH % 28.7 % (24.0-44.0); MEAN CORPUSCULAR HGB CONC 33.9 g/dl (32.0-36.5); MEAN CORPUSCULAR VOLUME 88.5 fl (80.0-96.0); MONO # 0.5 10^3/uL (0.0-0.8); MONO % 6.8 % (2.0-8.0); NEUTROPHILS # 4.4 10^3/uL (1.5-8.5); NEUTROPHILS % 62.1 % (36.0-66.0); PLATELET COUNT, AUTOMATED 240 10^3/uL (150-450); RED BLOOD COUNT 4.77 10^6/uL (4.00-5.40); WHITE BLOOD COUNT 7.1 10^3/uL (4.0-10.0)
[2020-09-30 13:39] LABS: ALBUMIN 3.9 GM/DL (3.2-5.2); ALT/SGPT 22 U/L (12-78); BILIRUBIN,TOTAL 0.4 MG/DL (0.2-1.0); BLOOD UREA NITROGEN 15 MG/DL (7-18); CALCIUM LEVEL 9.2 MG/DL (8.5-10.1); CARBON DIOXIDE LEVEL 31 MEQ/L (21-32); CHLORIDE LEVEL 106 MEQ/L (98-107); CHOLESTEROL LEVEL 231 MG/DL (<200); CREATININE FOR GFR 0.82 MG/DL (0.55-1.30); FREE T4 0.92 NG/DL (0.76-1.46); GLOMERULAR FILTRATION RATE > 60.0 (>58); GLUCOSE, FASTING 97 MG/DL (70-100); HDL CHOLESTEROL 70 MG/DL (>40); LDL CHOLESTEROL 135 MG/DL (<100); NON-HDL-C 161 MG/DL; POTASSIUM SERUM 3.5 MEQ/L (3.5-5.1); SODIUM LEVEL 140 MEQ/L (136-145); TOTAL 25(OH) VITAMIN D 27.2 NG/ML (30.0-100.0); TRIGLYCERIDES LEVEL 132 MG/DL (<150)
[2020-09-30 15:13] LABS: HEMOGLOBIN A1c 4.9 %
== END ==
LOC: M SFHCCLAY 06:41
PROVIDERS: ATTEND Nurse Practitioner Family
DX: I10 Essential (primary) hypertension (principal); E55.9 Vitamin D deficiency, unspecified; K21.9 Gastro-esophageal reflux disease without esophagitis; G43.909 Migraine, unspecified, not intractable, without status migrainosus; Z13.1 Encounter for screening for diabetes mellitus

== ENCOUNTER → 2020-11-08 | Outpatient (CLI) | payer BC ==
--- NOTE | 2020-11-09 09:58 | ECHO ---
DATE OF PROCEDURE: 11/08/2020 Age: 50 Gender: Female Height: 157 cm Weight: 83 kg REFERRING PHYSICIAN: Harmony Silverman NP INDICATION: Palpitations. MEASUREMENTS: IVS 1.8 cm LV 4.2 cm LVPW 0.9 cm LA 3.2 cm Aorta 2.7 cm IVC 1.8 cm Mitral E wave velocity 90 cm/s Mitral A wave 68 cm/s E prime septal 9.4 cm/s E prime lateral 12.9 cm/s FINDINGS: This study is of acceptable technical quality. The patient is in sinus rhythm with narrow QRS complex. Left ventricle is normal size and has normal systolic function, estimated LVEF 60% to 65%. Right ventricle also has normal size and systolic function. Both atria appear normal. All four cardiac valves are reasonably well seen and appear normal. No pericardial effusion is noted. Inferior vena cava is of normal size. Aortic root, aortic arch, and visualized segment of abdominal aorta all appear normal. Doppler interrogation of the aortic valve reveals no stenosis and trivial insufficiency. There is also trace mitral insufficiency. Mild tricuspid insufficiency is seen. Calculated pulmonary artery pressure is in the high 20s corresponding to upper limits of normal values. Mitral inflow pattern and tissue Doppler imaging of mitral annulus revealed normal diastolic function. CONCLUSIONS: 1. Study is of acceptable technical quality, underlying sinus rhythm with narrow QRS complex. 2. Normal LV size with preserved LV systolic and diastolic function. 3. No hemodynamically significant valvular disease. 4. Likely normal central venous pressure and normal pulmonary artery pressure. MTDD
== END ==
LOC: M CARPUL 08:38
PROVIDERS: ATTEND Nurse Practitioner Family
DX: R00.2 Palpitations (principal)

== ENCOUNTER → 2020-12-06 | Outpatient (CLI) | payer BC ==
[~2020-12-06] MED LIST changes: +PROHANCE 279.3MG/ML 15ML VIAL As Ordered ONE; +PROHANCE 279.3MG/ML 5ML VIAL As Ordered ONE
--- NOTE | 2020-12-07 09:42 | REP ---
INDICATION: NEOPLASM OF UNCERTAIN BEHAVIOR, LIVER, GALLBLADDER. COMPARISON: 05/21/2020, 04/01/2019. TECHNIQUE: Multiple single is obtained in the axial coronal planes prior to and following the intravenous administration of 17 mL ProHance. FINDINGS: Once again in the medial segment of the left lobe of the liver there is a mildly heterogeneously enhancing mass which measures approximately 4.2 x 2.9 cm. On the 2019 exam measurements at the same level are approximately 4.6 x 3.2 cm and therefore the mass may have slightly decreased in size. No new mass is seen. Spleen, adrenals, pancreas and visualized kidneys are unremarkable. There is no adenopathy or free fluid. IMPRESSION: The mass in the medial segment of left lobe of the liver, only seen on postcontrast images, has either not significantly changed or decreased in size slightly when compared to the prior study of 04/01/2019. <Electronically signed by Winston Granados > 12/07/20 [id number]
== END ==
LOC: M RAD 15:40
PROVIDERS: ATTEND Internal Medicine Gastroenterology
DX: D37.6 Neoplasm of uncertain behavior of liver, gallbladder and bile ducts (principal)
CPT/HCPCS: 74183; A9576

== ENCOUNTER → 2020-12-17 | Outpatient (REF) | payer BC ==
[~2020-12-17] MED LIST changes: -PROHANCE 279.3MG/ML 15ML VIAL As Ordered ONE; -PROHANCE 279.3MG/ML 5ML VIAL As Ordered ONE
[2020-12-17 16:54] LABS: ALBUMIN 4.4 GM/DL (3.2-5.2); BILIRUBIN,DIRECT 0.1 MG/DL (0.0-0.2); BILIRUBIN,TOTAL 0.6 MG/DL (0.2-1.0); TOTAL PROTEIN 7.8 GM/DL (6.4-8.2)
== END ==
LOC: M LABDRAWC 15:38
PROVIDERS: ATTEND Internal Medicine Gastroenterology
DX: D37.6 Neoplasm of uncertain behavior of liver, gallbladder and bile ducts (principal)

== ENCOUNTER → 2021-05-24 | Outpatient (REF) | payer BC | LOC: M SFHCCLAY 07:21 | PROVIDERS: ATTEND Nurse Practitioner Family | DX: Z01.84 Encounter for antibody response examination (principal) ==

== ENCOUNTER → 2021-11-23 | Outpatient (REF) | payer BC ==
[~2021-11-23] MED LIST changes: -CEFD1CAP8 PO; +CEFD300C41 PO; -MONT10TA10 PO; +MONT10TA97 PO
[2021-11-23 11:24] LABS: BASO # 0.1 10^3/uL (0.0-0.2); BASO % 0.8 % (0.0-1.0); EOS # 0.1 10^3/uL (0.0-0.5); EOS % 1.1 % (0.0-3.0); HEMATOCRIT 44.5 % (36.0-47.0); HEMOGLOBIN 15.1 g/dl (12.0-15.5); LYMPH # 2.2 10^3/uL (1.5-5.0); LYMPH % 33.1 % (24.0-44.0); MEAN CORPUSCULAR HEMOGLOBIN 29.9 pg (27.0-33.0); MEAN CORPUSCULAR HGB CONC 33.9 g/dl (32.0-36.5); MEAN CORPUSCULAR VOLUME 88.1 fl (80.0-96.0); MONO # 0.4 10^3/uL (0.0-0.8); NEUTROPHILS # 3.8 10^3/uL (1.5-8.5); NEUTROPHILS % 58.8 % (36.0-66.0); PLATELET COUNT, AUTOMATED 267 10^3/uL (150-450); RED BLOOD COUNT 5.05 10^6/uL (4.00-5.40); WHITE BLOOD COUNT 6.5 10^3/uL (4.0-10.0)
[2021-11-23 11:55] LABS: HEMOGLOBIN A1c 4.9 %
[2021-11-23 12:22] LABS: ALBUMIN 3.9 GM/DL (3.2-5.2); ALT/SGPT 22 U/L (12-78); BILIRUBIN,TOTAL 0.5 MG/DL (0.2-1.0); BLOOD UREA NITROGEN 16 MG/DL (7-18); CALCIUM LEVEL 9.2 MG/DL (8.5-10.1); CARBON DIOXIDE LEVEL 31 MEQ/L (21-32); CHLORIDE LEVEL 103 MEQ/L (98-107); CHOLESTEROL LEVEL 239 MG/DL (<200); CHOLESTEROL RISK RATIO 4.192 (<5); CREATININE FOR GFR 0.86 MG/DL (0.55-1.30); FREE T4 0.94 NG/DL (0.76-1.46); GLOMERULAR FILTRATION RATE > 60.0 (>58); GLUCOSE, FASTING 91 MG/DL (70-100); HDL CHOLESTEROL 57 MG/DL (>40); IRON (FE) 77 UG/DL (50-170); LDL CHOLESTEROL 143 MG/DL (<100); NON-HDL-C 182 MG/DL; PERCENT SATURATION 22.2 % (13.2-45.0); POTASSIUM SERUM 3.6 MEQ/L (3.5-5.1); SODIUM LEVEL 140 MEQ/L (136-145); TOTAL 25(OH) VITAMIN D 24.2 NG/ML (30.0-100.0); TOTAL IRON BINDING CAPACITY 347 UG/DL (250-450); TOTAL PROTEIN 7.2 GM/DL (6.4-8.2); TRIGLYCERIDES LEVEL 196 MG/DL (<150); VITAMIN B12 LEVEL 597 PG/ML (247-911)
== END ==
LOC: M SFHCCLAY 07:03
PROVIDERS: ATTEND Nurse Practitioner Family
DX: I10 Essential (primary) hypertension (principal); E55.9 Vitamin D deficiency, unspecified; K21.9 Gastro-esophageal reflux disease without esophagitis; G43.909 Migraine, unspecified, not intractable, without status migrainosus; Z13.1 Encounter for screening for diabetes mellitus

== ENCOUNTER → 2021-11-25 | Outpatient (CLI) | payer BC | LOC: M WHC 07:57 | PROVIDERS: ATTEND Internal Medicine Gastroenterology | DX: D37.6 Neoplasm of uncertain behavior of liver, gallbladder and bile ducts (principal); K76.0 Fatty (change of) liver, not elsewhere classified ==

== ENCOUNTER → 2021-12-06 | Outpatient (REF) | payer BC ==
[~2021-12-06] MED LIST changes: +ALBU2.5V10 INH; -ALBU83IN INH
[2021-12-06 12:37] LABS: ALT/SGPT 21 U/L (12-78); BILIRUBIN,DIRECT < 0.1 MG/DL (0.0-0.2); BILIRUBIN,TOTAL 0.4 MG/DL (0.2-1.0); TOTAL PROTEIN 7.2 GM/DL (6.4-8.2)
== END ==
LOC: M LABDRAWC 11:34
PROVIDERS: ATTEND Internal Medicine Gastroenterology
DX: D37.6 Neoplasm of uncertain behavior of liver, gallbladder and bile ducts (principal)

== ENCOUNTER → 2021-12-13 | Outpatient (REF) ==
[2021-12-13 11:46] LABS: RSV AMPLIFICATION NEGATIVE (NEGATIVE)
== END ==
LOC: M EMP 07:50
PROVIDERS: ATTEND Family Medicine
DX: Z20.822 Contact with and (suspected) exposure to COVID-19 (principal)

== ENCOUNTER → 2021-12-15 | Outpatient (REF) | payer BC ==
[~2021-12-15] MED LIST changes: +ALBU8.5H INH; +ALLE24TA7 PO; +AMOX875T2 PO; +BIOT1CAP2 PO; +FLUTISP INH; +MAG100TA PO; +TRIA37.5 PO; +VITA100093 PO; +VITMTA PO
== END ==
LOC: M SFHCCLAY 15:54
PROVIDERS: ATTEND Nurse Practitioner Family
DX: L60.8 Other nail disorders (principal)

== ENCOUNTER → 2021-12-21 | Outpatient (CLI) | payer BC | LOC: M LABSMTC 11:35 | PROVIDERS: ATTEND Anesthesiology | DX: Z01.818 Encounter for other preprocedural examination (principal); Z20.822 Contact with and (suspected) exposure to COVID-19 ==

== ENCOUNTER 2021-12-26 12:56 | Day surgery (SDC) | payer BC ==
[~2021-12-26] VITALS: Ht 157.5 cm; Wt 85.0 kg
[~2021-12-26 12:56] MED LIST changes: +NS 1,000 ML IV ONE
[2021-12-26] MEDS ORDERED: LIDOCAINE 2% INJ 100 MG/5 ML SYRINGE As Ordered ONE ×2 (15:52→15:59)
[2021-12-26] MEDS ORDERED: propofoL 200 MG/20 ML VIAL As Ordered ONE ×3 (15:52→15:59)
[2021-12-26 16:50] VITALS: BP 131/77
== END 2021-12-26 17:01 | disposition home or self-care (01) ==
LOC: M OPP 12:56
PROVIDERS: ATTEND Internal Medicine Gastroenterology
DX: Z12.11 Encounter for screening for malignant neoplasm of colon (principal); D12.6 Benign neoplasm of colon, unspecified; K64.8 Other hemorrhoids; Z98.890 Other specified postprocedural states; R13.10 Dysphagia, unspecified; R11.10 Vomiting, unspecified; Z79.51 Long term (current) use of inhaled steroids; Z79.899 Other long term (current) drug therapy; Z91.030 Bee allergy status; Z83.79 Family history of other diseases of the digestive system

== ENCOUNTER → 2022-02-17 | Outpatient (CLI) | payer BC ==
[~2022-02-17] MED LIST changes: +E-Z-GAS II EFFERVESCENT PACKET (SODIUM BICARB./CITRIC ACID/SIMETHICONE) As Ordered ONE; +E-Z-HD 98% w/w 340GM SUSP BTL As Ordered ONE; +E-Z-PAQUE 96% w/w SUSP 176GM BTL As Ordered ONE; -NS 1,000 ML IV ONE; +POTA-150 PO; -POTA10TA17 PO
== END ==
LOC: M RAD 08:33
PROVIDERS: ATTEND Internal Medicine Gastroenterology
DX: J39.2 Other diseases of pharynx (principal); Z98.890 Other specified postprocedural states

== ENCOUNTER → 2022-08-03 | Outpatient (REF) | payer BC ==
[~2022-08-03] MED LIST changes: -E-Z-GAS II EFFERVESCENT PACKET (SODIUM BICARB./CITRIC ACID/SIMETHICONE) As Ordered ONE; -E-Z-HD 98% w/w 340GM SUSP BTL As Ordered ONE; -E-Z-PAQUE 96% w/w SUSP 176GM BTL As Ordered ONE
[2022-08-03 17:40] LABS: CREATININE FOR GFR 0.75 MG/DL (0.55-1.30); GLOMERULAR FILTRATION RATE > 60.0 (>51)
== END ==
LOC: M LABDRAWC 16:52
PROVIDERS: ATTEND Colon & Rectal Surgery
DX: K76.89 Other specified diseases of liver (principal)

== ENCOUNTER → 2022-08-03 | Outpatient (REF) | payer BC | LOC: M SFHCCLAY 09:14 | PROVIDERS: ATTEND Nurse Practitioner Family | DX: J32.9 Chronic sinusitis, unspecified (principal) ==

== ENCOUNTER → 2022-08-21 | Outpatient (CLI) | payer BC | LOC: M PLAIMG 09:38 | PROVIDERS: ATTEND Nurse Practitioner Family | DX: J32.0 Chronic maxillary sinusitis (principal); J34.2 Deviated nasal septum ==

== ENCOUNTER → 2022-08-24 | Outpatient (CLI) | payer BC | LOC: M RAD 15:49 | PROVIDERS: ATTEND Nurse Practitioner Family | DX: R05.9 Cough, unspecified (principal) ==

== ENCOUNTER → 2023-03-21 | Outpatient (REF) | payer BC ==
[~2023-03-21] MED LIST changes: -FLUT11IN INH; +FLUT12AE6 INH; +FLUT50SP17 INH; -FLUTISP INH; +MONT-5 PO; +POTA-298 PO; -POTA1TAB14 PO; -SING10TA32 PO
[2023-03-21 11:39] LABS: BASO # 0.1 10^3/uL (0.0-0.2); EOS # 0.1 10^3/uL (0.0-0.5); EOS % 1.3 % (0.0-3.0); HEMATOCRIT 45.1 % (36.0-47.0); HEMOGLOBIN 15.3 g/dl (12.0-15.5); LYMPH % 33.4 % (24.0-44.0); MEAN CORPUSCULAR HEMOGLOBIN 29.9 pg (27.0-33.0); MEAN CORPUSCULAR HGB CONC 33.9 g/dl (32.0-36.5); MEAN CORPUSCULAR VOLUME 88.1 fl (80.0-96.0); MONO # 0.4 10^3/uL (0.0-0.8); MONO % 6.4 % (2.0-8.0); NEUTROPHILS # 3.5 10^3/uL (1.5-8.5); NEUTROPHILS % 57.7 % (36.0-66.0); PLATELET COUNT, AUTOMATED 256 10^3/uL (150-450); RED BLOOD COUNT 5.12 10^6/uL (4.00-5.40); WHITE BLOOD COUNT 6.1 10^3/uL (4.0-10.0)
[2023-03-21 12:12] LABS: MALB URINE SIEMENS < 3.0 MG/L; MAU/CREAT RATIO 9.3 MCG/MG (0.0-30.0); THYROID STIMULATING HORMONE 2.689 uIU/ML (0.55-4.78)
[2023-03-21 12:14] LABS: ALBUMIN 4.2 G/DL (3.2-5.2); ALKALINE PHOSPHATASE 85 U/L (46-116); ALT/SGPT 23 U/L (7.0-40); AST/SGOT 17 U/L (<34); BILIRUBIN,TOTAL 0.7 MG/DL (0.3-1.2); BLOOD UREA NITROGEN 18 MG/DL (9-23); CALCIUM LEVEL 9.7 MG/DL (8.5-10.1); CARBON DIOXIDE LEVEL 32 MMOL/L (20-31); CHLORIDE LEVEL 102 MMOL/L (98-107); CHOLESTEROL LEVEL 260 MG/DL (<200); CREATININE FOR GFR 0.73 MG/DL (0.55-1.30); GLOMERULAR FILTRATION RATE > 60.0 (>51); GLUCOSE, FASTING 91 MG/DL (60-100); HDL CHOLESTEROL 64.9 MG/DL (>40); LDL CHOLESTEROL 163.7 MG/DL (<100); NON-HDL-C 195.1 MG/DL; POTASSIUM SERUM 3.6 MMOL/L (3.5-5.1); SODIUM LEVEL 143 MMOL/L (136-145); TRIGLYCERIDES LEVEL 157 MG/DL (<150)
[2023-03-21 12:16] LABS: FREE T4 1.19 NG/DL (0.89-1.76)
[2023-03-21 12:38] LABS: HEMOGLOBIN A1c 4.5 % (4.0-6.0)
== END ==
LOC: M SFHCCLAY 06:50
PROVIDERS: ATTEND Nurse Practitioner Family
DX: K21.9 Gastro-esophageal reflux disease without esophagitis (principal); I10 Essential (primary) hypertension; K76.9 Liver disease, unspecified; E55.9 Vitamin D deficiency, unspecified; Z68.35 Body mass index [BMI] 35.0-35.9, adult

== ENCOUNTER → 2023-04-30 | Outpatient (REF) ==
[~2023-04-30] MED LIST changes: -CEFD300C41 PO; +CEFD300C42 PO
== END ==
LOC: M EMP 08:14
PROVIDERS: ATTEND Family Medicine
DX: Z11.52 Encounter for screening for COVID-19 (principal)

== ENCOUNTER 2023-07-30 07:46 | Day surgery (SDC) | payer BC ==
[~2023-07-30] VITALS: Ht 157.5 cm; Wt 87.1 kg
[~2023-07-30 07:46] MED LIST changes: +CEFD1CAP9 PO; -CEFD300C42 PO; +FEXO-112 PO; +FLUT12AE2 IH; -FLUT50SP17 INH; +FLUTISP INH; +THERTAB52 PO; +xyzal PO
[2023-07-30] MEDS ORDERED: LR 1,000 ML IV SCH (08:15)
[2023-07-30] MEDS ORDERED: ALBUTEROL SULFATE 2.5MG/0.5ML INH NEB SOLN INH PRN ×2 (08:15→10:50)
[2023-07-30] MEDS ORDERED: propofoL 200 MG/20 ML VIAL As Ordered ONE (10:09)
[2023-07-30] MEDS ORDERED: ONDANSETRON 4MG 2ML VIAL As Ordered ONE (10:09)
[2023-07-30] MEDS ORDERED: MIDAZOLAM INJ 2MG/2ML VIAL As Ordered ONE (10:09)
[2023-07-30] MEDS ORDERED: LIDOCAINE 2% 100MG/5ML SDV (FOR ANES.) As Ordered ONE (10:09)
[2023-07-30] MEDS ORDERED: fentaNYL 100 MCG/2 ML INJECTION As Ordered ONE (10:09)
[2023-07-30] MEDS ORDERED: KETOROLAC 60MG 2ML VIAL As Ordered ONE (10:09)
[2023-07-30] MEDS ORDERED: ACETAMINOPHEN 1000MG 100ML IV BAG As Ordered ONE (10:10)
[2023-07-30] MEDS ORDERED: fentaNYL 100 MCG/2 ML INJECTION IV PRN (10:50)
[2023-07-30] MEDS ORDERED: ONDANSETRON 4MG 2ML VIAL IV PRN (10:50)
[2023-07-30] MEDS ORDERED: oxyCODONE 5MG TAB PO PRN (10:50)
[2023-07-30] MEDS ORDERED: METOCLOPRAMIDE INJ 10MG/2ML VIAL IV PRN (10:50)
[2023-07-30] MEDS ORDERED: diphenhydrAMINE 50MG/ML VIAL IV PRN (10:50)
[2023-07-30] MEDS ORDERED: MEPERIDINE 25 MG/ML 1ML VIAL IV PRN (10:50)
[2023-07-30 12:15] VITALS: BP 129/74; TEMP 97; O2SAT 97
== END 2023-07-30 12:15 | disposition home or self-care (01) ==
LOC: M SDC 07:46
PROVIDERS: ATTEND Orthopaedic Surgery Hand Surgery
DX: G56.01 Carpal tunnel syndrome, right upper limb (principal); I10 Essential (primary) hypertension; R51.9 Headache, unspecified; J45.909 Unspecified asthma, uncomplicated; G47.33 Obstructive sleep apnea (adult) (pediatric); Z79.51 Long term (current) use of inhaled steroids; Z79.899 Other long term (current) drug therapy; Z91.030 Bee allergy status
CPT/HCPCS: 29848; J0131; J0665; J1100; J1885; J2250; J2405; J3010

== ENCOUNTER → 2023-08-23 | Outpatient (CLI) | payer BC ==
[~2023-08-23] MED LIST changes: +PROHANCE 279.3MG/ML 15ML VIAL ONE; +PROHANCE 279.3MG/ML 5ML VIAL ONE
== END ==
LOC: M PLAIMG 14:40
PROVIDERS: ATTEND Internal Medicine Gastroenterology
DX: D37.6 Neoplasm of uncertain behavior of liver, gallbladder and bile ducts (principal)
CPT/HCPCS: 74183; A9576

== ENCOUNTER → 2024-02-08 | Outpatient (REF) ==
[~2024-02-08] MED LIST changes: -PROHANCE 279.3MG/ML 15ML VIAL ONE; -PROHANCE 279.3MG/ML 5ML VIAL ONE
== END ==
LOC: M EMP 08:40
PROVIDERS: ATTEND Family Medicine
DX: Z11.52 Encounter for screening for COVID-19 (principal)

== ENCOUNTER → 2025-05-18 | Outpatient (CLI) | payer BC ==
[~2025-05-18] MED LIST changes: +BARIUM SULFATE 700 MG TABLET As Ordered ONE; +E-Z-PAQUE 96% w/w SUSP 176 GM BTL As Ordered ONE; +VARIBAR NECTAR 40% w/v 240ML SUSP BTL As Ordered ONE; +VARIBAR PUDDING 40% w/v 230ML TUBE As Ordered ONE
== END ==
LOC: M RAD 13:57
PROVIDERS: ATTEND Otolaryngology
DX: R13.10 Dysphagia, unspecified (principal)